=== PATIENT | female | born 1950 | race Caucasian/White ===

== ENCOUNTER 2018-03-13 05:35 | Inpatient (IN) | payer MEDICARE ==
[~2018-03-13] VITALS: Ht 152.4 cm; Wt 76.2 kg
[~2018-03-13 05:35] MED LIST: ASCO100019 PO; ASPI-496 PO; ATOR10TA9 PO; CA C1TAB39 PO; CALC1CAP8 PO; CHOL500015 PO; CYAN500T2 PO; HYDR-3307 PO; MELO7.5T31 PO; OLME5TAB4 PO; ROPI0.5T2 PO; [UNRECOGNIZED DRUG - OTHER] PO; areds PO
[2018-03-13] MEDS ORDERED: LACTATED RINGERS 1,000 ML IV SCH (07:20)
[2018-03-13] MEDS ORDERED: FENTANYL PF 250 MCG/5ML ONE ×2 (07:33→09:14)
[2018-03-13] MEDS ORDERED: MIDAZOLAM 1 MG/ML, 2ML ONE (07:33)
[2018-03-13] MEDS ORDERED: BUPIVACAINE/PF 0.5% ONE (07:48)
[2018-03-13] MEDS ORDERED: EPINEPHRINE 1 MG/ML, 1ML ONE (07:48)
[2018-03-13] MEDS ORDERED: THROMBIN 20,000 UNIT VIAL TP ONE (07:48)
[2018-03-13] MEDS ORDERED: BACITRACIN 50,000 UNIT ONE (07:49)
[2018-03-13] MEDS ORDERED: FENTANYL PF 100 MCG/2ML IV PRN (09:00)
[2018-03-13] MEDS ORDERED: ACETAMINOPHEN 325 MG TABLET PO PRN (09:00)
[2018-03-13] MEDS ORDERED: OXYcodone 5 MG/5 ML ORAL.SOL UDC PO PRN (09:00)
[2018-03-13] MEDS ORDERED: ONDANSETRON 2MG/ML, 2ML IVPush PRN ×2 (09:00→09:30)
[2018-03-13] MEDS ORDERED: LABETALOL 5MG/ML, 20ML IV PRN (09:00)
[2018-03-13] MEDS ORDERED: hydrALAzine 20 MG/ML, 1ML IV PRN (09:00)
[2018-03-13] MEDS ORDERED: MEPERIDINE/PF 25MG/0.5ML IVPush PRN (09:00)
[2018-03-13] MEDS ORDERED: PROMETHAZINE 25 MG/ML, 1ML IV PRN (09:00)
[2018-03-13] MEDS ORDERED: BISACODYL 10 MG SUPP PR PRN (09:30)
[2018-03-13] MEDS ORDERED: SENNA/DOCUSATE TABLET PO PRN (09:30)
[2018-03-13] MEDS ORDERED: LABETALOL 5MG/ML, 20ML IVPush PRN (09:30)
[2018-03-13] MEDS ORDERED: morphine SULFATE 10 MG/ML, 1ML IVPush PRN (09:30)
[2018-03-13] MEDS ORDERED: PHARMACY MAY ADJ FOR RENAL FX MC PRN (09:30)
[2018-03-13] MEDS ORDERED: HYDROcodone/APAP 5/325 TABLET PO PRN (09:30)
[2018-03-13] MEDS ORDERED: DIPHENHYDRAMINE 50 MG/ML, 1ML IVPush PRN (09:30)
[2018-03-13] MEDS ORDERED: DIPHENHYDRAMINE 50 MG CAPSULE PO PRN (09:30)
[2018-03-13] MEDS ORDERED: PROMETHAZINE 25 MG/ML, 1ML IM PRN (09:30)
[2018-03-13] MEDS: LABETALOL 5MG/ML 40ML VIAL IVPush SCH ×2 (09:30→16:56)
[2018-03-13] MEDS ORDERED: MAGNESIUM HYDROXIDE 8%, 30ML UDC PO PRN (09:30)
[2018-03-13] MEDS ORDERED: ROPINIROLE 0.5MG TABLET PO PRN (10:00)
[2018-03-13] MEDS ORDERED: OXYcodone 5 MG/5 ML ORAL.SOL UDC ONE (10:06)
[2018-03-13] MEDS ORDERED: MORPHINE SULFATE 4 MG/ML, 1ML ONE (10:06)
[2018-03-13] MEDS: morphine SULFATE 10 MG/ML, 1ML IV PRN ×2 (10:11→10:25)
[2018-03-13] MEDS ORDERED: DEXAMETHASONE 4 MG/ML, 1ML ONE (10:41)
[2018-03-13] MEDS ORDERED: SUCCINYLCHOLINE 20 MG/ML, 10ML ONE (10:41)
[2018-03-13] MEDS ORDERED: hydrALAzine 20 MG/ML, 1ML ONE (10:41)
[2018-03-13] MEDS ORDERED: CEFAZOLIN 1,000 MG ONE (10:41)
[2018-03-13] MEDS ORDERED: PROPOFOL 10 MG/ML, 20ML ONE (10:41)
[2018-03-13] MEDS ORDERED: ROCURONIUM 10 MG/ML,10ML ONE (10:41)
[2018-03-13] MEDS ORDERED: ONDANSETRON 2MG/ML, 2ML ONE (10:41)
[2018-03-13] MEDS ORDERED: CEFAZOLIN PMX 1GM/50ML 50 ML IVPB SCH (11:00)
[2018-03-13] MEDS: LOSARTAN 25MG TABLET PO SCH (11:30)
[2018-03-13 12:50] VITALS: BP_SYST 120; BP_SYST 123; BP_SYST 130; BP_DIAS 67; BP_DIAS 70
[2018-03-13] MEDS: OXYcodone/APAP 5/325MG TABLET PO PRN ×2 (14:34→21:17)
[2018-03-13] MEDS: CEFAZOLIN PMX 1GM/50ML 50 ML IVPB SCH (17:36)
[2018-03-13] MEDS: ONDANSETRON ODT 4 MG PO PRN ×2 (17:40→23:40)
[2018-03-13 20:34] VITALS: BP 136/75
[2018-03-13] MEDS: SODIUM CHLORIDE FLUSH 10ML SYR IVF SCH (21:00)
[2018-03-13] MEDS: ATORVASTATIN 10 MG TABLET PO SCH (21:00)
[2018-03-13] MEDS: D5%-0.9% NACL+KCL 20MEQ 1,000 ML IV SCH (21:05)
[2018-03-14 00:10] VITALS: BP 127/68
[2018-03-14] MEDS: LABETALOL 5MG/ML 40ML VIAL IVPush SCH ×3 (01:30→17:09)
[2018-03-14 01:40] VITALS: BP 108/63
[2018-03-14] MEDS: CEFAZOLIN PMX 1GM/50ML 50 ML IVPB SCH (02:05)
[2018-03-14 04:00] VITALS: BP 127/68
[2018-03-14 05:13] LABS: BASOPHILS # (AUTO) 0.02 x10^3/uL (0-0.1); BASOPHILS % (AUTO) 0 % (0-1); EOSINOPHILS % (AUTO) 0 % (1-7); LYMPHOCYTES # (AUTO) 1.05 x10^3/uL (1-3.4); LYMPHOCYTES % (AUTO) 10 % (22-44); MD NO; MEAN CORPUSCULAR HEMOGLOBIN 29.5 pg (27.0-34.8); MEAN CORPUSCULAR HGB CONC 33.4 g/dL (32.4-35.8); MEAN CORPUSCULAR VOLUME 88.3 fL (80-100); MEAN PLATELET VOLUME 8.5 fL (7.4-10.4); MONOCYTES # (AUTO) 0.89 x10^3/uL (0.2-0.8); MONOCYTES % (AUTO) 9 % (2-9); NEUTROPHILS % (AUTO) 81 % (42-75); PLATELET COUNT 199 x10^3/uL (130-400); RED BLOOD COUNT 3.87 x10^6/uL (3.82-5.3); RED CELL DISTRIBUTION WIDTH 14.2 % (9.6-15.2)
[2018-03-14 05:27] LABS: CHLORIDE 106 mmol/L (98-107)
[2018-03-14 05:34] LABS: ANION GAP 12 mmol/L (5-15); CALCIUM 8.6 mg/dL (8.5-10.1); CREATININE 0.73 mg/dL (0.55-1.02)
[2018-03-14] MEDS ORDERED: BUPIVACAINE/PF 0.5% ONE (06:18)
[2018-03-14] MEDS ORDERED: THROMBIN 5,000 UNIT VIAL TP ONE ×2 (06:18→13:34)
[2018-03-14] MEDS ORDERED: BUPIVACAINE 0.25% ONE (06:18)
[2018-03-14] MEDS ORDERED: VANCOMYCIN 1,000 MG ONE (06:18)
[2018-03-14] MEDS ORDERED: BACITRACIN 50,000 UNIT ONE ×2 (06:18→17:22)
[2018-03-14 07:59] VITALS: BP 121/75
[2018-03-14] MEDS: LOSARTAN 25MG TABLET PO SCH (08:37)
[2018-03-14] MEDS: SODIUM CHLORIDE FLUSH 10ML SYR IVF SCH ×2 (08:38→22:29)
[2018-03-14] MEDS ORDERED: OXYcodone 5 MG/5 ML ORAL.SOL UDC PO PRN ×2 (10:00→20:00)
[2018-03-14] MEDS ORDERED: ONDANSETRON 2MG/ML, 2ML IVPush PRN ×2 (10:00→20:00)
[2018-03-14] MEDS ORDERED: MEPERIDINE/PF 25MG/0.5ML IVPush PRN ×2 (10:00→20:00)
[2018-03-14] MEDS ORDERED: hydrALAzine 20 MG/ML, 1ML IV PRN ×2 (10:00→20:00)
[2018-03-14] MEDS ORDERED: PROMETHAZINE 12.5 MG SUPP PR PRN ×2 (10:00→20:00)
[2018-03-14] MEDS ORDERED: morphine SULFATE 10 MG/ML, 1ML IV PRN (10:00)
[2018-03-14] MEDS ORDERED: LABETALOL 5MG/ML, 20ML IV PRN ×2 (10:00→20:00)
[2018-03-14] MEDS ORDERED: HYDROmorphone 1 MG/ML, 1ML IV PRN ×2 (10:00→20:00)
[2018-03-14] MEDS ORDERED: MIDAZOLAM 1 MG/ML, 2ML ONE (10:08)
[2018-03-14] MEDS ORDERED: FENTANYL PF 250 MCG/5ML ONE ×2 (10:08→16:49)
[2018-03-14] MEDS ORDERED: SCOPOLAMINE PATCH, 1.5MG PATCH.TD72 TD ONE (11:14)
[2018-03-14] MEDS ORDERED: PROPOFOL 10 MG/ML, 20ML ONE (11:22)
[2018-03-14] MEDS ORDERED: ROCURONIUM 10MG/ML,5ML ONE (11:38)
[2018-03-14] MEDS ORDERED: DEXAMETHASONE 4 MG/ML, 1ML ONE (11:38)
[2018-03-14] MEDS ORDERED: CEFAZOLIN 1,000 MG ONE ×2 (11:39)
[2018-03-14] MEDS ORDERED: BUPIVACAINE/PF 0.5% INFIL ONE (13:32)
[2018-03-14] MEDS ORDERED: VANCOMYCIN 1,000 MG IM ONE ×2 (13:37→13:40)
[2018-03-14] MEDS ORDERED: FENTANYL PF 100 MCG/2ML ONE ×3 (14:20→20:14)
[2018-03-14] MEDS ORDERED: OXYcodone 5 MG/5 ML ORAL.SOL UDC ONE ×2 (14:21→19:40)
[2018-03-14] MEDS: FENTANYL PF 100 MCG/2ML IV PRN ×5 (14:25→20:16)
[2018-03-14] MEDS: METOCLOPRAMIDE 10MG TABLET PO SCH ×2 (16:00→22:39)
[2018-03-14] MEDS ORDERED: EPINEPHRINE 1 MG/ML, 1ML ONE (16:24)
[2018-03-14] MEDS ORDERED: PROPOFOL 50 ML ONE (16:49)
[2018-03-14] MEDS ORDERED: THROMBIN 20,000 UNIT VIAL TP ONE ×2 (17:22→18:25)
[2018-03-14] MEDS ORDERED: HEPARIN 1,000 UNITS/ML, 30ML ONE (17:47)
[2018-03-14] MEDS ORDERED: hydrALAzine 20 MG/ML, 1ML ONE (18:22)
[2018-03-14] MEDS ORDERED: BACITRACIN 50,000 UNIT IM ONE (18:25)
[2018-03-14] MEDS ORDERED: ONDANSETRON 2MG/ML, 2ML ONE (19:07)
[2018-03-14] MEDS ORDERED: morphine SULFATE 10 MG/ML, 1ML ONE (19:39)
[2018-03-14] MEDS: morphine SULFATE 10 MG/ML, 1ML IV PRN ×3 (19:46→20:06)
[2018-03-14] MEDS ORDERED: METHOCARBAMOL 750 MG TABLET ONE (20:14)
[2018-03-14] MEDS: METHOCARBAMOL 750 MG TABLET PO PRN (20:24)
[2018-03-14 22:17] VITALS: BP 114/53
[2018-03-14] MEDS: D5%-0.9% NACL+KCL 20MEQ 1,000 ML IV SCH (22:29)
[2018-03-14] MEDS: ATORVASTATIN 10 MG TABLET PO SCH (22:39)
[2018-03-14 23:40] VITALS: BP 107/52
[2018-03-15] MEDS: LABETALOL 5MG/ML 40ML VIAL IVPush SCH ×3 (01:30→16:35)
[2018-03-15 03:53] VITALS: BP 109/55
[2018-03-15 05:34] LABS: BASOPHILS # (AUTO) 0.01 x10^3/uL (0-0.1); BASOPHILS % (AUTO) 0 % (0-1); EOSINOPHILS % (AUTO) 0 % (1-7); LYMPHOCYTES # (AUTO) 0.67 x10^3/uL (1-3.4); LYMPHOCYTES % (AUTO) 7 % (22-44); MD NO; MEAN CORPUSCULAR HEMOGLOBIN 30.4 pg (27.0-34.8); MEAN CORPUSCULAR HGB CONC 33.9 g/dL (32.4-35.8); MEAN CORPUSCULAR VOLUME 89.7 fL (80-100); MEAN PLATELET VOLUME 8.1 fL (7.4-10.4); MONOCYTES # (AUTO) 0.88 x10^3/uL (0.2-0.8); MONOCYTES % (AUTO) 9 % (2-9); NEUTROPHILS # (AUTO) 7.91 x10^3/uL (1.8-6.8); NEUTROPHILS % (AUTO) 84 % (42-75); PLATELET COUNT 156 x10^3/uL (130-400); RED BLOOD COUNT 3.02 x10^6/uL (3.82-5.3); RED CELL DISTRIBUTION WIDTH 14.3 % (9.6-15.2)
[2018-03-15 05:38] LABS: ANION GAP 7 mmol/L (5-15); CALCIUM 8.6 mg/dL (8.5-10.1); CHLORIDE 108 mmol/L (98-107); CREATININE 0.66 mg/dL (0.55-1.02)
[2018-03-15 07:56] VITALS: BP 141/73
[2018-03-15] MEDS: LOSARTAN 25MG TABLET PO SCH (08:32)
[2018-03-15] MEDS: ENOXAPARIN 40 MG/0.4 ML SQ SCH (08:32)
[2018-03-15] MEDS: METOCLOPRAMIDE 10MG TABLET PO SCH ×3 (08:33→20:46)
[2018-03-15] MEDS: SODIUM CHLORIDE FLUSH 10ML SYR IVF SCH ×2 (08:35→20:46)
[2018-03-15 12:50] VITALS: BP 142/82
[2018-03-15] MEDS: OXYcodone/APAP 5/325MG TABLET PO PRN ×2 (12:57→20:46)
[2018-03-15] MEDS: D5%-0.9% NACL+KCL 20MEQ 1,000 ML IV SCH (15:44)
[2018-03-15] MEDS: ATORVASTATIN 10 MG TABLET PO SCH (20:46)
[2018-03-15 20:49] VITALS: BP 137/67
[2018-03-16] MEDS: OXYcodone/APAP 5/325MG TABLET PO PRN ×4 (00:50→19:24)
[2018-03-16 01:01] VITALS: BP 119/74
[2018-03-16] MEDS: LABETALOL 5MG/ML 40ML VIAL IVPush SCH ×3 (01:28→16:13)
[2018-03-16] MEDS: D5%-0.9% NACL+KCL 20MEQ 1,000 ML IV SCH (04:41)
[2018-03-16 05:12] LABS: BASOPHILS # (AUTO) 0.04 x10^3/uL (0-0.1); BASOPHILS % (AUTO) 1 % (0-1); CHLORIDE 109 mmol/L (98-107); EOSINOPHILS # (AUTO) 0.16 x10^3/uL (0-0.4); EOSINOPHILS % (AUTO) 2 % (1-7); LYMPHOCYTES # (AUTO) 1.68 x10^3/uL (1-3.4); LYMPHOCYTES % (AUTO) 23 % (22-44); MD NO; MEAN CORPUSCULAR HEMOGLOBIN 29.9 pg (27.0-34.8); MEAN CORPUSCULAR HGB CONC 33.5 g/dL (32.4-35.8); MEAN CORPUSCULAR VOLUME 89.3 fL (80-100); MEAN PLATELET VOLUME 8.1 fL (7.4-10.4); MONOCYTES % (AUTO) 10 % (2-9); NEUTROPHILS # (AUTO) 4.58 x10^3/uL (1.8-6.8); NEUTROPHILS % (AUTO) 64 % (42-75); PLATELET COUNT 157 x10^3/uL (130-400); RED BLOOD COUNT 2.85 x10^6/uL (3.82-5.3); RED CELL DISTRIBUTION WIDTH 14.5 % (9.6-15.2)
[2018-03-16 05:18] LABS: ANION GAP 4 mmol/L (5-15); CALCIUM 7.8 mg/dL (8.5-10.1); CREATININE 0.65 mg/dL (0.55-1.02)
[2018-03-16 08:08] VITALS: BP 129/66
[2018-03-16] MEDS ORDERED: LABETALOL 5MG/ML, 20ML ONE (08:52)
[2018-03-16] MEDS: SODIUM CHLORIDE FLUSH 10ML SYR IVF SCH ×2 (08:58→22:31)
[2018-03-16] MEDS: ENOXAPARIN 40 MG/0.4 ML SQ SCH (08:58)
[2018-03-16] MEDS: GABAPENTIN 100 MG CAPSULE PO SCH ×3 (08:58→22:33)
[2018-03-16] MEDS: LOSARTAN 25MG TABLET PO SCH (08:59)
[2018-03-16] MEDS: METOCLOPRAMIDE 10MG TABLET PO SCH ×3 (08:59→22:31)
[2018-03-16] MEDS ORDERED: LABETALOL 5MG/ML 40ML VIAL IVPush SCH (09:30)
[2018-03-16 13:45] VITALS: BP 119/60
[2018-03-16 18:35] VITALS: BP 132/69
[2018-03-16] MEDS: ATORVASTATIN 10 MG TABLET PO SCH (22:33)
[2018-03-16] MEDS: METHOCARBAMOL 750 MG TABLET PO PRN (22:41)
[2018-03-17] MEDS: OXYcodone/APAP 5/325MG TABLET PO PRN ×3 (00:24→18:41)
[2018-03-17 00:37] VITALS: BP 133/59
[2018-03-17] MEDS: LABETALOL 5MG/ML 40ML VIAL IVPush SCH ×3 (01:30→16:19)
[2018-03-17 05:08] LABS: BASOPHILS # (AUTO) 0.03 x10^3/uL (0-0.1); BASOPHILS % (AUTO) 0 % (0-1); EOSINOPHILS # (AUTO) 0.27 x10^3/uL (0-0.4); EOSINOPHILS % (AUTO) 4 % (1-7); LYMPHOCYTES # (AUTO) 1.65 x10^3/uL (1-3.4); LYMPHOCYTES % (AUTO) 23 % (22-44); MD NO; MEAN CORPUSCULAR HGB CONC 33.9 g/dL (32.4-35.8); MEAN CORPUSCULAR VOLUME 88.5 fL (80-100); MEAN PLATELET VOLUME 8.1 fL (7.4-10.4); MONOCYTES # (AUTO) 0.51 x10^3/uL (0.2-0.8); MONOCYTES % (AUTO) 7 % (2-9); NEUTROPHILS # (AUTO) 4.64 x10^3/uL (1.8-6.8); NEUTROPHILS % (AUTO) 65 % (42-75); PLATELET COUNT 196 x10^3/uL (130-400); RED BLOOD COUNT 2.97 x10^6/uL (3.82-5.3); RED CELL DISTRIBUTION WIDTH 13.7 % (9.6-15.2)
[2018-03-17 06:40] VITALS: BP 116/71
[2018-03-17] MEDS ORDERED: LACTATED RINGERS 1,000 ML IV SCH (07:20)
[2018-03-17] MEDS: ENOXAPARIN 40 MG/0.4 ML SQ SCH (09:01)
[2018-03-17] MEDS: METOCLOPRAMIDE 10MG TABLET PO SCH (09:01)
[2018-03-17] MEDS: LOSARTAN 25MG TABLET PO SCH (09:02)
[2018-03-17] MEDS: SODIUM CHLORIDE FLUSH 10ML SYR IVF SCH (09:03)
[2018-03-17] MEDS: GABAPENTIN 300 MG CAPSULE PO SCH ×2 (09:04→16:16)
[2018-03-17] MEDS: BETHANECHOL 10 MG TABLET PO SCH ×2 (09:08→16:00)
[2018-03-17] MEDS ORDERED: D5%-0.9% NACL+KCL 20MEQ 1,000 ML IV SCH (11:00)
[2018-03-17 12:48] VITALS: BP 128/80
[2018-03-17] MEDS ORDERED: OXYC-302 PO (18:08)
[2018-03-17] MEDS ORDERED: METH750T87 PO (18:09)
[2018-03-17] MEDS ORDERED: GABA300C PO (18:10)
[2018-03-17] MEDS ORDERED: CEPH-368 PO (18:10)
[2018-03-17] MEDS ORDERED: BETH10TA12 PO (18:11)
== END 2018-03-17 18:47 | DRG 454 ==
LOC: ORIP 05:35 → 4NOR 10:52
PROVIDERS: ADMIT Neurological Surgery; ATTEND Neurological Surgery
PROC: 0SG30A0 Fusion of Lumbosacral Joint with Interbody Fusion Device, Anterior Approach, Anterior Column, Open Approach (ICD-10-PCS; 2018-03-13)
PROC: 0SB40ZZ Excision of Lumbosacral Disc, Open Approach (ICD-10-PCS; 2018-03-13)
PROC: 0QP004Z Removal of Internal Fixation Device from Lumbar Vertebra, Open Approach (ICD-10-PCS; 2018-03-14)
PROC: 0SG3071 Fusion of Lumbosacral Joint with Autologous Tissue Substitute, Posterior Approach, Posterior Column, Open Approach (ICD-10-PCS; 2018-03-14)
PROC: 4A1134G Monitoring of Peripheral Nervous Electrical Activity, Intraoperative, Percutaneous Approach (ICD-10-PCS; 2018-03-14)
PROC: 0SG30A0 Fusion of Lumbosacral Joint with Interbody Fusion Device, Anterior Approach, Anterior Column, Open Approach (ICD-10-PCS; principal; 2018-03-14 13:00)
DX: M48.07 Spinal stenosis, lumbosacral region (principal); T84.226A Displacement of internal fixation device of vertebrae, initial encounter; E66.9 Obesity, unspecified; M51.17 Intervertebral disc disorders with radiculopathy, lumbosacral region; M43.17 Spondylolisthesis, lumbosacral region; G80.9 Cerebral palsy, unspecified; G89.29 Other chronic pain; Y92.239 Unspecified place in hospital as the place of occurrence of the external cause; M81.0 Age-related osteoporosis without current pathological fracture; Y83.8 Other surgical procedures as the cause of abnormal reaction of the patient, or of later complication, without mention of misadventure at the time of the procedure; Z68.31 Body mass index [BMI] 31.0-31.9, adult
CPT/HCPCS: 36415; 72100; 72131; 74018; 80048; 85025; C1713; C1729; C1776; J0171; J0690; J1100; J1644; J1650; J2250; J2405; J2704; J3010; J3370; J3490; Q0162; C1762; J0330; J0360; J2270; J3480